=== PATIENT | male | born 1985 | race Caucasian/White ===

== ENCOUNTER 2016-08-03 17:31 | Emergency (ER) | payer SELFPAY ==
[~2016-08-03] VITALS: Ht 172.7 cm; Wt 70.3 kg
[2016-08-03] MEDS ORDERED: HYDR-3713 PO (19:27)
[2016-08-03] MEDS ORDERED: AMOX500C PO (19:27)
[2016-08-03 19:28] VITALS: BP 102/66
== END 2016-08-03 19:49 | disposition home or self-care (01) ==
LOC: M ED 18:54
DX: K02.9 Dental caries, unspecified (principal)

== ENCOUNTER 2016-09-22 16:36 | Emergency (ER) | payer SELFPAY ==
[~2016-09-22] VITALS: Ht 175.3 cm; Wt 76.7 kg
[~2016-09-22 16:36] MED LIST: AMOX500C PO; HYDR-3713 PO
[2016-09-22 16:37] VITALS: BP 112/73
[2016-09-22] MEDS ORDERED: LIDOCAINE VISCOUS 2% SOLN 15ML UDC SSP ONE (17:30)
[2016-09-22] MEDS ORDERED: LIDO1SOL7 MT (17:33)
[2016-09-22] MEDS ORDERED: INDO25CA PO (17:33)
[2016-09-22] MEDS ORDERED: AMOX500C PO (17:33)
== END 2016-09-22 19:00 | disposition home or self-care (01) ==
LOC: M ED 17:59
DX: K02.9 Dental caries, unspecified (principal)

== ENCOUNTER 2017-03-18 17:29 | Emergency (ER) | payer SELFPAY ==
[~2017-03-18] VITALS: Ht 172.7 cm; Wt 65.9 kg
[~2017-03-18 17:29] MED LIST changes: +INDO25CA PO; +LIDO1SOL7 MT
[2017-03-18 17:30] VITALS: BP 105/58
== END 2017-03-18 19:09 | disposition left against medical advice (07) ==
LOC: M ED 17:29
DX: Z53.21 Procedure and treatment not carried out due to patient leaving prior to being seen by health care provider (principal)

== ENCOUNTER 2017-08-07 14:13 | Emergency (ER) | payer OTHER, SELFPAY ==
[2017-08-07] MEDS: ACETAMINOPHEN 325 MG TAB PO (15:07)
[2017-08-07] MEDS: ONDANSETRON 4 MG ORAL DISINTEGRATING TAB (S0181) PO (15:20)
[2017-08-07 15:28] LABS: INFLUENZA A AMPLIFICATION NEGATIVE (NEGATIVE); INFLUENZA B AMPLIFICATION POSITIVE (NEGATIVE)
== END 2017-08-07 16:00 | disposition home or self-care (01) ==
LOC: M ED 14:13
DX: J10.1 Influenza due to other identified influenza virus with other respiratory manifestations (principal); Z88.5 Allergy status to narcotic agent
CPT/HCPCS: 71046

== ENCOUNTER 2017-11-26 23:37 | Emergency (ER) | payer OTHER | END 2017-11-27 01:31 | disposition home or self-care (01) | LOC: M ED 23:37 | DX: S80.862A Insect bite (nonvenomous), left lower leg, initial encounter (principal); W57.XXXA Bitten or stung by nonvenomous insect and other nonvenomous arthropods, initial encounter; Y92.89 Other specified places as the place of occurrence of the external cause; Z88.5 Allergy status to narcotic agent; F17.210 Nicotine dependence, cigarettes, uncomplicated | CPT/HCPCS: 99282 ==

== ENCOUNTER 2018-06-29 06:56 | Emergency (ER) | payer OTHER ==
[~2018-06-29] VITALS: Ht 172.7 cm; Wt 65.9 kg
[~2018-06-29 06:56] MED LIST changes: +ZOFR4TAB14 PO
[2018-06-29 06:57] VITALS: BP 175/93
[2018-06-29] MEDS ORDERED: SUBO8MIS PO (07:02)
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
== END 2018-06-29 08:15 | disposition home or self-care (01) ==
LOC: M ED 06:56
DX: M79.602 Pain in left arm (principal); V49.49XA Driver injured in collision with other motor vehicles in traffic accident, initial encounter; Y92.410 Unspecified street and highway as the place of occurrence of the external cause; Z79.891 Long term (current) use of opiate analgesic; Z88.5 Allergy status to narcotic agent

== ENCOUNTER 2025-03-21 23:06 | Emergency (ER) | payer OTHER ==
[~2025-03-21] VITALS: Ht 172.7 cm; Wt 70.9 kg
[~2025-03-21 23:06] MED LIST changes: +INDO-16 PO; -INDO25CA PO; +LIDO15SO8 MT; -LIDO1SOL7 MT; +SUBO8MIS PO
[2025-03-21 23:07] VITALS: BP 144/80; TEMP 98.8; O2SAT 99
== END 2025-03-21 23:45 | disposition left against medical advice (07) ==
LOC: M ED 23:06
DX: Z53.21 Procedure and treatment not carried out due to patient leaving prior to being seen by health care provider (principal)

== ENCOUNTER 2025-04-12 18:08 | Emergency (ER) | payer OTHER ==
[~2025-04-12] VITALS: Ht 172.7 cm; Wt 68.2 kg
[2025-04-12 18:10] VITALS: BP 144/84; TEMP 97.8; O2SAT 99
[2025-04-12] MEDS ORDERED: METH10CO3 PO (18:17)
== END 2025-04-12 19:35 | disposition left against medical advice (07) ==
LOC: M ED 18:08
DX: Z53.21 Procedure and treatment not carried out due to patient leaving prior to being seen by health care provider (principal)